=== PATIENT | female | born 1950 | race Caucasian/White ===

== ENCOUNTER 2016-12-15 16:29 | Emergency (ER) | payer OTHER ==
[~2016-12-15] VITALS: Ht 165.1 cm; Wt 107.0 kg
[~2016-12-15 16:29] MED LIST: ASPI325T4 PO; ESCI10TA PO; METF500T4 PO; ROSU5TAB PO
[2016-12-15 16:39] VITALS: BP 136/70
[2016-12-15] MEDS ORDERED: HYDROmorphone 1 MG/ML, 1ML ONE (17:47)
[2016-12-15] MEDS ORDERED: ONDANSETRON ODT 4 MG ONE (17:47)
[2016-12-15] MEDS ORDERED: HYDROmorphone 1 MG/ML, 1ML IM ONE (18:00)
[2016-12-15] MEDS ORDERED: ONDANSETRON ODT 4 MG PO ONE (18:00)
== END 2016-12-15 18:24 | disposition home or self-care (01) ==
LOC: ED 16:52
DX: S76.912A Strain of unspecified muscles, fascia and tendons at thigh level, left thigh, initial encounter (principal); E11.9 Type 2 diabetes mellitus without complications; E78.00 Pure hypercholesterolemia, unspecified; I10 Essential (primary) hypertension; W19.XXXA Unspecified fall, initial encounter; Y93.89 Activity, other specified; Y92.009 Unspecified place in unspecified non-institutional (private) residence as the place of occurrence of the external cause; Y99.9 Unspecified external cause status
CPT/HCPCS: 73502; 73552; 96372; 99284; J1170; Q0162